=== PATIENT | male | born 1970 | race Caucasian/White ===

== ENCOUNTER 2021-01-19 05:54 | Inpatient (IN) | payer OTHER ==
[~2021-01-19] VITALS: Ht 177.8 cm; Wt 104.4 kg
[2021-01-19 06:23] LABS: BASOPHIL 0.3 % (0-2); EOSINOPHIL 0.4 % (0-5); HCT 47.9 % (42.0-52.0); HGB 16.1 g/dl (13.2-18.0); LYMPHOCYTE 18.3 % (15-48); MCH 28.4 pg (25.0-31.0); MCHC 33.6 g/dL (32.0-36.0); MCV 84.5 fL (78.0-100.0); MONOCYTE 9.1 % (0-12); MPV 10.4 fL (6.0-9.5); NEUTROPHIL 71.5 % (41-80); NRBC 0; PLT 273 K/uL (150-400); RBC 5.67 M/uL (4.70-6.00); RDW 13.2 % (11.5-14.0); WBC 12.5 K/uL (4.0-10.5)
[2021-01-19 08:01] LABS: ALBUMIN 4.1 g/dL (3.4-5.0); BILIRUBIN - TOTAL 1.6 mg/dL (0.2-1.0); BUN/CREAT RATIO (CALC) 11.4 RATIO; CREATININE 1.14 mg/dL (0.67-1.17); GLOBULIN (CALCULATION) 3.6 g/dL; POTASSIUM 4.3 mmol/L (3.5-5.1); TOTAL PROTEIN 7.7 g/dL (6.4-8.2)
[2021-01-19 08:29] LABS: BILIRUBIN NEGATIVE (NEGATIVE); BLOOD NEGATIVE Ery/uL (NEGATIVE); CLARITY CLEAR (CLEAR); COLOR YELLOW (YELLOW); GLUCOSE (U) NORMAL (NORMAL); LEUKOCYTES NEGATIVE Leu/uL (NEGATIVE); NITRITE NEGATIVE (NEGATIVE); PROTEIN NEGATIVE (NEGATIVE); SPECIFIC GRAVITY 1.025 (1.001-1.030); UROBILINOGEN 0.2 mg/dL (0.2-1.0)
[2021-01-19 14:26] LABS: LACTIC ACID 1.8 mmol/L (0.4-1.9)
[2021-01-20 10:59] LABS: HCT 40.5 % (42.0-52.0); HGB 13.4 g/dl (13.2-18.0); MCH 28.7 pg (25.0-31.0); MCHC 33.1 g/dL (32.0-36.0); MCV 86.7 fL (78.0-100.0); MPV 10.1 fL (6.0-9.5); RBC 4.67 M/uL (4.70-6.00); RDW 13.3 % (11.5-14.0); WBC 7.9 K/uL (4.0-10.5)
--- NOTE | 2021-01-20 16:12 | NUR ---
01/20 Mr. Luna lives at home with his spouse. He works and they are able to meet their financial obligations. No discharge planning needs are anticipated.
[2021-01-21 06:44] LABS: BASOPHIL 0.5 % (0-2); EOSINOPHIL 0.9 % (0-5); HCT 45.1 % (42.0-52.0); HGB 15.1 g/dl (13.2-18.0); LYMPHOCYTE 13.6 % (15-48); MCH 28.7 pg (25.0-31.0); MCHC 33.5 g/dL (32.0-36.0); MCV 85.7 fL (78.0-100.0); MONOCYTE 6.2 % (0-12); MPV 10.1 fL (6.0-9.5); NEUTROPHIL 78.5 % (41-80); NRBC 0; PLT 189 K/uL (150-400); RBC 5.26 M/uL (4.70-6.00); RDW 13.3 % (11.5-14.0); WBC 5.8 K/uL (4.0-10.5)
[2021-01-21 07:04] LABS: ALBUMIN 3.3 g/dL (3.4-5.0); BILIRUBIN - TOTAL 1.9 mg/dL (0.2-1.0); BUN/CREAT RATIO (CALC) 9.3 RATIO; CREATININE 1.08 mg/dL (0.67-1.17); GLOBULIN (CALCULATION) 4.3 g/dL; POTASSIUM 3.6 mmol/L (3.5-5.1); TOTAL PROTEIN 7.6 g/dL (6.4-8.2)
[2021-01-21] MEDS ORDERED: AUGMENTIN 875-1 EACH PO (15:12)
[2021-01-21] MEDS ORDERED: BIO-K PLUS DR1 EACH PO (15:12)
== END 2021-01-21 16:03 | disposition home or self-care (01) | DRG 871 ==
LOC: FER 05:54 → FMS 07:36
PROVIDERS: Emergency Medicine Emergency Medical Services; Student in an Organized Health Care Education/Training Program; ADMIT Family Medicine
PROC: 8E0ZXY6 Isolation (ICD-10-PCS; principal; 2021-01-19)
DX: A41.9 Sepsis, unspecified organism (principal); U07.1 COVID-19; K57.20 Diverticulitis of large intestine with perforation and abscess without bleeding; N17.9 Acute kidney failure, unspecified; R65.20 Severe sepsis without septic shock; Z20.822 Contact with and (suspected) exposure to COVID-19; R73.9 Hyperglycemia, unspecified; Z98.52 Vasectomy status; Z83.79 Family history of other diseases of the digestive system
CPT/HCPCS: 36415; 80053; 81003; 83036; 83605; 85025; 87040; J1170; J1650; J1885; J2405; J2543; J7030; U0002

== ENCOUNTER 2021-01-22 10:06 | Inpatient (IN) | payer OTHER ==
[~2021-01-22] VITALS: Ht 177.8 cm; Wt 60.4 kg
[~2021-01-22 10:06] MED LIST: AUGMENTIN 875-1 EACH PO; BIO-K PLUS DR1 EACH PO
[2021-01-23 05:58] LABS: BASOPHIL 0.2 % (0-2); EOSINOPHIL 0 % (0-5); HCT 46.4 % (42.0-52.0); HGB 15.5 g/dl (13.2-18.0); LYMPHOCYTE 7.1 % (15-48); MCH 28.1 pg (25.0-31.0); MCHC 33.4 g/dL (32.0-36.0); MCV 84.2 fL (78.0-100.0); MONOCYTE 8.6 % (0-12); MPV 10.1 fL (6.0-9.5); NEUTROPHIL 83.7 % (41-80); NRBC 0; PLT 280 K/uL (150-400); RBC 5.51 M/uL (4.70-6.00); RDW 13.3 % (11.5-14.0)
[2021-01-23 06:03] LABS: WBC 10.6 K/uL (4.0-10.5)
[2021-01-23 06:32] LABS: ALBUMIN 2.2 g/dL (3.4-5.0); BILIRUBIN - TOTAL 1.2 mg/dL (0.2-1.0); BUN/CREAT RATIO (CALC) 14.8 RATIO; CREATININE 1.55 mg/dL (0.67-1.17); GLOBULIN (CALCULATION) 3.8 g/dL; POTASSIUM 4.4 mmol/L (3.5-5.1)
[2021-01-23 11:41] LABS: LACTIC ACID 1.7 mmol/L (0.4-1.9)
[2021-01-24 06:10] LABS: BASOPHIL 0.2 % (0-2); EOSINOPHIL 0 % (0-5); HCT 37.9 % (42.0-52.0); HGB 12.6 g/dl (13.2-18.0); LYMPHOCYTE 10.1 % (15-48); MCH 27.9 pg (25.0-31.0); MCHC 33.2 g/dL (32.0-36.0); MONOCYTE 7.8 % (0-12); MPV 9.9 fL (6.0-9.5); NEUTROPHIL 81.1 % (41-80); NRBC 0; PLT 278 K/uL (150-400); RBC 4.51 M/uL (4.70-6.00); RDW 13.3 % (11.5-14.0); WBC 10.5 K/uL (4.0-10.5)
[2021-01-24 06:26] LABS: BILIRUBIN - TOTAL 0.6 mg/dL (0.2-1.0); BUN/CREAT RATIO (CALC) 19.8 RATIO; CREATININE 1.11 mg/dL (0.67-1.17); GLOBULIN (CALCULATION) 3.8 g/dL; MAGNESIUM 2.3 mg/dL (1.8-2.4); POTASSIUM 3.8 mmol/L (3.5-5.1); TOTAL PROTEIN 5.8 g/dL (6.4-8.2)
[2021-01-25 04:41] LABS: BASOPHIL 0.2 % (0-2); EOSINOPHIL 0.1 % (0-5); HCT 34.9 % (42.0-52.0); HGB 11.4 g/dl (13.2-18.0); LYMPHOCYTE 13.5 % (15-48); MCH 28.1 pg (25.0-31.0); MCHC 32.7 g/dL (32.0-36.0); MCV 86.2 fL (78.0-100.0); MONOCYTE 5.8 % (0-12); MPV 9.2 fL (6.0-9.5); NEUTROPHIL 79.1 % (41-80); NRBC 0; PLT 242 K/uL (150-400); RBC 4.05 M/uL (4.70-6.00); RDW 13.2 % (11.5-14.0); WBC 8.2 K/uL (4.0-10.5)
[2021-01-25 05:04] LABS: ALBUMIN 2.1 g/dL (3.4-5.0); BILIRUBIN - TOTAL 0.6 mg/dL (0.2-1.0); GLOBULIN (CALCULATION) 3.7 g/dL; POTASSIUM 3.4 mmol/L (3.5-5.1); TOTAL PROTEIN 5.8 g/dL (6.4-8.2)
--- NOTE | 2021-01-25 15:04 | NUR ---
01/25 Mr. Luna lives at home with his spouse. He was independent in the home and community. Referrals have been made to [facility] for a rw and [facility] for ostomy care per patient choice. - A report was given to MS Elizabeth RN, requesting for several flangs and ostomy bags to be provided to patient at discharge.
--- NOTE | 2021-01-26 17:10 | NUR ---
01/26 Lilly'humberto has delivered the RW to patient's room.
[2021-01-27 07:42] LABS: BASOPHIL 0.5 % (0-2); EOSINOPHIL 1.8 % (0-5); HCT 37.5 % (42.0-52.0); HGB 12.2 g/dl (13.2-18.0); MCH 28.1 pg (25.0-31.0); MCHC 32.5 g/dL (32.0-36.0); MCV 86.4 fL (78.0-100.0); MONOCYTE 6.4 % (0-12); MPV 9.2 fL (6.0-9.5); NEUTROPHIL 73.3 % (41-80); NRBC 0; PLT 329 K/uL (150-400); RBC 4.34 M/uL (4.70-6.00); RDW 13.2 % (11.5-14.0); WBC 9.4 K/uL (4.0-10.5)
[2021-01-27 07:59] LABS: BUN/CREAT RATIO (CALC) 17.1 RATIO; CREATININE 1.05 mg/dL (0.67-1.17); POTASSIUM 3.3 mmol/L (3.5-5.1)
[2021-01-28 07:55] LABS: HCT 41.7 % (42.0-52.0); HGB 13.4 g/dl (13.2-18.0); MCH 27.7 pg (25.0-31.0); MCHC 32.1 g/dL (32.0-36.0); MCV 86.2 fL (78.0-100.0); MPV 9.3 fL (6.0-9.5); RBC 4.84 M/uL (4.70-6.00); RDW 13.3 % (11.5-14.0); WBC 9.5 K/uL (4.0-10.5)
[2021-01-28 08:18] LABS: CREATININE 1.07 mg/dL (0.67-1.17); POTASSIUM 3.3 mmol/L (3.5-5.1)
--- NOTE | 2021-01-28 10:34 | NUR ---
01/28/2021 [facility] was informed of discharge.
[2021-01-28] MEDS ORDERED: NORCO 5-325 TA1 EACH PO (11:02)
[2021-01-28] MEDS ORDERED: ONDANSETRON ODT4 MG PO (11:02)
== END 2021-01-28 12:00 | disposition home health service (06) | DRG 853 ==
LOC: FOR 10:06 → FMS 18:53 → FTCU 18:53 → FMS 01-25 09:19
PROVIDERS: Nurse Practitioner; Nurse Practitioner Acute Care; Student in an Organized Health Care Education/Training Program; ADMIT Family Medicine
PROC: 0DJD8ZZ Inspection of Lower Intestinal Tract, Via Natural or Artificial Opening Endoscopic (ICD-10-PCS; 2021-01-22)
PROC: 8E0ZXY6 Isolation (ICD-10-PCS; principal; 2021-01-22 14:15)
PROC: 0DTN0ZZ Resection of Sigmoid Colon, Open Approach (ICD-10-PCS; 2021-01-22 14:15)
PROC: 0D1B0Z4 Bypass Ileum to Cutaneous, Open Approach (ICD-10-PCS; 2021-01-22 14:15)
DX: A41.9 Sepsis, unspecified organism (principal); K65.9 Peritonitis, unspecified; K57.20 Diverticulitis of large intestine with perforation and abscess without bleeding; K56.7 Ileus, unspecified; N17.9 Acute kidney failure, unspecified; D62 Acute posthemorrhagic anemia; E87.0 Hyperosmolality and hypernatremia; E44.0 Moderate protein-calorie malnutrition; N18.2 Chronic kidney disease, stage 2 (mild); Z20.822 Contact with and (suspected) exposure to COVID-19; R73.9 Hyperglycemia, unspecified; R65.20 Severe sepsis without septic shock; E87.6 Hypokalemia; Z86.16 Personal history of COVID-19; Z98.52 Vasectomy status
CPT/HCPCS: 36415; 71045; 80048; 80053; 82570; 82962; 83605; 83735; 85025; 87040; 87088; 93005; 94010; 94667; 94668; 97162; 97166; 97530-GP; 97535; J1100; J1170; J1644; J2250; J2270; J2405; J2543; J2704; J2800; J3010; J3480; J3490; J7030; J7050; J7120; Q9967; U0002

== ENCOUNTER 2021-01-31 13:19 | Inpatient (IN) | payer OTHER ==
[~2021-01-31] VITALS: Ht 177.8 cm; Wt 96.8 kg
[~2021-01-31 13:19] MED LIST changes: +NORCO 5-325 TA1 EACH PO; +ONDANSETRON ODT4 MG PO
[2021-01-31 14:14] LABS: BASOPHIL 0.2 % (0-2); EOSINOPHIL 0.4 % (0-5); HCT 39.6 % (42.0-52.0); HGB 13.4 g/dl (13.2-18.0); LYMPHOCYTE 8.4 % (15-48); MCH 27.6 pg (25.0-31.0); MCHC 33.8 g/dL (32.0-36.0); MONOCYTE 8.4 % (0-12); NRBC 0; PLT 415 K/uL (150-400); RBC 4.85 M/uL (4.70-6.00); RDW 13.4 % (11.5-14.0); WBC 17.4 K/uL (4.0-10.5)
[2021-01-31 14:17] LABS: MCV 81.6 fL (78.0-100.0)
[2021-01-31 14:26] LABS: ALKALINE PHOSHATASE 137 U/L (46-116); ALT 97 U/L (16-63); AST 23 U/L (15-37); BUN 15 mg/dL (7-18); BUN/CREAT RATIO (CALC) 14.7 RATIO; CHLORIDE 95 mmol/L (98-107); CO2 (BICARBONATE) 25 mmol/L (21-32); CREATININE 1.02 mg/dL (0.67-1.17); GLOBULIN (CALCULATION) 4.6 g/dL; GLUCOSE 137 mg/dL (74-106); LIPASE 212 U/L (73-393); POTASSIUM 4.5 mmol/L (3.5-5.1); TOTAL PROTEIN 7.6 g/dL (6.4-8.2)
[2021-01-31 15:54] LABS: CORONAVIRUS 2019 SARS-COV-2 NEGATIVE (NEGATIVE); INFLUENZA A NAA NEGATIVE (NEGATIVE)
[2021-02-01 06:58] LABS: BASOPHIL 0.3 % (0-2); EOSINOPHIL 0.3 % (0-5); HCT 36.6 % (42.0-52.0); HGB 12.1 g/dl (13.2-18.0); MCH 27.8 pg (25.0-31.0); MCHC 33.1 g/dL (32.0-36.0); MCV 84.1 fL (78.0-100.0); MONOCYTE 9.2 % (0-12); MPV 9.6 fL (6.0-9.5); NEUTROPHIL 78.9 % (41-80); NRBC 0; PLT 318 K/uL (150-400); RBC 4.35 M/uL (4.70-6.00); RDW 13.7 % (11.5-14.0)
[2021-02-01 07:34] LABS: ALBUMIN 2.5 g/dL (3.4-5.0); ALKALINE PHOSHATASE 109 U/L (46-116); ALT 71 U/L (16-63); AST 16 U/L (15-37); BILIRUBIN - TOTAL 0.9 mg/dL (0.2-1.0); BUN 14 mg/dL (7-18); BUN/CREAT RATIO (CALC) 16.9 RATIO; CHLORIDE 98 mmol/L (98-107); CO2 (BICARBONATE) 26 mmol/L (21-32); CREATININE 0.83 mg/dL (0.67-1.17); GLOBULIN (CALCULATION) 4.3 g/dL; GLUCOSE 125 mg/dL (74-106); POTASSIUM 4.9 mmol/L (3.5-5.1); TOTAL PROTEIN 6.8 g/dL (6.4-8.2)
[2021-02-03] MEDS ORDERED: ELIQUIS5 MG PO (10:47)
== END 2021-02-03 13:50 | disposition home or self-care (01) | DRG 175 ==
LOC: FER 13:19 → FTCU 02-01 01:28
PROVIDERS: Emergency Medicine; Internal Medicine; ADMIT Internal Medicine
DX: I26.09 Other pulmonary embolism with acute cor pulmonale (principal); K57.20 Diverticulitis of large intestine with perforation and abscess without bleeding; E87.1 Hypo-osmolality and hyponatremia; R65.10 Systemic inflammatory response syndrome (SIRS) of non-infectious origin without acute organ dysfunction; I36.1 Nonrheumatic tricuspid (valve) insufficiency; Z20.822 Contact with and (suspected) exposure to COVID-19; N18.2 Chronic kidney disease, stage 2 (mild); R73.9 Hyperglycemia, unspecified; Z90.49 Acquired absence of other specified parts of digestive tract; Z93.3 Colostomy status; Z98.52 Vasectomy status; Z79.899 Other long term (current) drug therapy
CPT/HCPCS: 36415; 71045; 71275; 80053; 83690; 83880; 84145; 84484; 85025; 85730; 93005; 93970; J1170; J1644; J2405; J7030; Q9967; U0002

== ENCOUNTER 2021-03-23 14:05 | Emergency (ER) | payer OTHER ==
[~2021-03-23 14:05] MED LIST changes: +ELIQUIS5 MG PO
[2021-03-23 16:05] LABS: BASOPHIL 0.6 % (0-2); EOSINOPHIL 1.6 % (0-5); HCT 46.8 % (42.0-52.0); HGB 15.4 g/dl (13.2-18.0); LYMPHOCYTE 20.3 % (15-48); MCH 26.6 pg (25.0-31.0); MCHC 32.9 g/dL (32.0-36.0); MCV 80.8 fL (78.0-100.0); MONOCYTE 8.7 % (0-12); MPV 9.5 fL (6.0-9.5); NRBC 0; PLT 272 K/uL (150-400); RBC 5.79 M/uL (4.70-6.00); RDW 15.5 % (11.5-14.0); WBC 9.3 K/uL (4.0-10.5)
[2021-03-23 16:07] LABS: BILIRUBIN NEGATIVE (NEGATIVE); BLOOD 3+ Ery/uL (NEGATIVE); CLARITY CLEAR (CLEAR); COLOR YELLOW (YELLOW); GLUCOSE (U) NORMAL (NORMAL); LEUKOCYTES NEGATIVE Leu/uL (NEGATIVE); NITRITE NEGATIVE (NEGATIVE); PROTEIN 1+ mg/dL (NEGATIVE); SPECIFIC GRAVITY >=1.030 (1.001-1.030); UROBILINOGEN 0.2 mg/dL (0.2-1.0); pH 5.5 (5.0-9.0)
[2021-03-23 16:10] LABS: INR 1.21 (0.9-1.2); PROTHROMBIN TIME 14.7 SECONDS (11.8-13.4); PTT 26.7 SECONDS (24.4-34.7)
[2021-03-23 16:12] LABS: ALBUMIN 4.5 g/dL (3.4-5.0); BUN/CREAT RATIO (CALC) 15.9 RATIO; CREATININE 1.32 mg/dL (0.67-1.17); GLOBULIN (CALCULATION) 3.7 g/dL; POTASSIUM 4.5 mmol/L (3.5-5.1); TOTAL PROTEIN 8.2 g/dL (6.4-8.2)
[2021-03-23 16:13] LABS: BACTERIA TRACE; CALCIUM OXALATE CRYSTALS MODERATE; SQUAMOUS EPITHELIAL CELLS RARE; URINARY RBC 20-50
== END 2021-03-23 18:46 | disposition home or self-care (01) ==
LOC: FER 14:05
PROVIDERS: Physician Assistant
DX: N21.0 Calculus in bladder (principal); N32.89 Other specified disorders of bladder; Z86.711 Personal history of pulmonary embolism; Z79.01 Long term (current) use of anticoagulants
CPT/HCPCS: 36415; 80053; 81001; 85025; 85610; 85730

== ENCOUNTER → 2021-05-14 | Day surgery (SDC) | payer OTHER ==
[~2021-05-14] VITALS: Ht 177.8 cm; Wt 88.6 kg
[~2021-05-14] MED LIST changes: +ATARAX25 MG PO; +DAILY VALUE1 EACH PO
== END | disposition home or self-care (01) ==
LOC: FAS 09:10
DX: K57.30 Diverticulosis of large intestine without perforation or abscess without bleeding (principal); K63.89 Other specified diseases of intestine; Z93.2 Ileostomy status; Z90.49 Acquired absence of other specified parts of digestive tract; Z79.01 Long term (current) use of anticoagulants; Z98.0 Intestinal bypass and anastomosis status
CPT/HCPCS: J2250; J2704; J7120

== ENCOUNTER 2021-06-02 08:45 | Inpatient (IN) | payer OTHER ==
[~2021-06-02] VITALS: Ht 178 cm; Wt 86.0 kg
[2021-07-21 07:01] LABS: HCT 46.2 % (42.0-52.0); HGB 15.4 g/dl (13.2-18.0); MCH 28.6 pg (25.0-31.0); MCHC 33.3 g/dL (32.0-36.0); MCV 85.9 fL (78.0-100.0); MPV 10.6 fL (6.0-9.5); RBC 5.38 M/uL (4.70-6.00); RDW 13.7 % (11.5-14.0); WBC 4.6 K/uL (4.0-10.5)
[2021-07-21 07:26] LABS: ALBUMIN 4.3 g/dL (3.4-5.0); BILIRUBIN - TOTAL 1.9 mg/dL (0.2-1.0); BUN/CREAT RATIO (CALC) 8.7 RATIO; CREATININE 1.04 mg/dL (0.67-1.17); GLOBULIN (CALCULATION) 3.3 g/dL; POTASSIUM 4.3 mmol/L (3.5-5.1); TOTAL PROTEIN 7.6 g/dL (6.4-8.2)
[2021-07-22 06:25] LABS: HCT 38.2 % (42.0-52.0); HGB 12.7 g/dl (13.2-18.0); MCH 28.6 pg (25.0-31.0); MCHC 33.2 g/dL (32.0-36.0); MPV 10.4 fL (6.0-9.5); RBC 4.44 M/uL (4.70-6.00); RDW 13.6 % (11.5-14.0)
[2021-07-22 06:46] LABS: WBC 8.4 K/uL (4.0-10.5)
[2021-07-22 07:00] LABS: ALBUMIN 3.1 g/dL (3.4-5.0); BILIRUBIN - TOTAL 1.2 mg/dL (0.2-1.0); BUN/CREAT RATIO (CALC) 10.5 RATIO; CREATININE 1.14 mg/dL (0.67-1.17); GLOBULIN (CALCULATION) 2.7 g/dL; POTASSIUM 3.7 mmol/L (3.5-5.1); TOTAL PROTEIN 5.8 g/dL (6.4-8.2)
[2021-07-23 05:47] LABS: BASOPHIL 0.3 % (0-2); EOSINOPHIL 0.3 % (0-5); HCT 38.1 % (42.0-52.0); HGB 12.6 g/dl (13.2-18.0); LYMPHOCYTE 16.6 % (15-48); MCH 28.6 pg (25.0-31.0); MCHC 33.1 g/dL (32.0-36.0); MCV 86.6 fL (78.0-100.0); MONOCYTE 10.2 % (0-12); MPV 10.3 fL (6.0-9.5); NEUTROPHIL 72.4 % (41-80); NRBC 0; PLT 167 K/uL (150-400); RDW 13.8 % (11.5-14.0); WBC 5.9 K/uL (4.0-10.5)
[2021-07-23 06:07] LABS: BUN/CREAT RATIO (CALC) 7.7 RATIO; CREATININE 0.91 mg/dL (0.67-1.17); POTASSIUM 3.6 mmol/L (3.5-5.1)
[2021-07-23 17:05] LABS: HCT 43.4 % (42.0-52.0); HGB 14.4 g/dl (13.2-18.0); MCH 28.5 pg (25.0-31.0); MCHC 33.2 g/dL (32.0-36.0); MCV 85.9 fL (78.0-100.0); MPV 10.1 fL (6.0-9.5); RBC 5.05 M/uL (4.70-6.00); RDW 13.6 % (11.5-14.0); WBC 5.9 K/uL (4.0-10.5)
--- NOTE | 2021-07-23 17:19 | NUR ---
1530 CALLED IN THE ROOM WANTED TEMP CHECKED FACE FLUSHED AND SKIN IS WARM AND TEMP WAS 99.8. INSTRUCTIONS GIVEN ON THE USE OF THE ISB PATIENT WAS ABLE TO GET IT UP TO 1999, WILL MONITOR FOR CHANGES. 1628 DR. OWENS WAS NOTIFED AND WILL COME TO CHECK ON THE PATIENT. 1633 COMPLIANTS OF INCREASED PAIN, OXY-IR 5MG AND TYLENOL 650MG PO. WILL MONITOR FOR CHANGES. 1700 DR. OWENS HERE FOR TO CHECK ON THE PATIENT.
[2021-07-23 17:30] LABS: ALBUMIN 3.4 g/dL (3.4-5.0); BILIRUBIN - TOTAL 1.6 mg/dL (0.2-1.0); BUN/CREAT RATIO (CALC) 7.4 RATIO; CREATININE 0.94 mg/dL (0.67-1.17); POTASSIUM 3.8 mmol/L (3.5-5.1); TOTAL PROTEIN 6.4 g/dL (6.4-8.2)
[2021-07-25 06:03] LABS: HCT 43.7 % (42.0-52.0); MCH 28.5 pg (25.0-31.0); MCV 88.8 fL (78.0-100.0); MPV 10.1 fL (6.0-9.5); RBC 4.92 M/uL (4.70-6.00); RDW 13.6 % (11.5-14.0); WBC 5.3 K/uL (4.0-10.5)
[2021-07-25 06:25] LABS: BUN/CREAT RATIO (CALC) 9.9 RATIO; CREATININE 1.01 mg/dL (0.67-1.17)
[2021-07-26] MEDS ORDERED: ACETAMINOPHEN500 M1 PO (09:09)
[2021-07-26] MEDS ORDERED: COLACE100 MG PO (09:09)
[2021-07-26] MEDS ORDERED: OXY-IR 5MG5 MG PO (09:09)
[2021-07-26] MEDS ORDERED: MOTRIN600 MG PO (09:09)
[2021-07-27] MEDS ORDERED: ACETAMINOPHEN500 M1 PO (21:38)
[2021-07-27] MEDS ORDERED: COLACE100 MG PO (21:38)
[2021-07-27] MEDS ORDERED: OXY-IR 5MG5 MG PO (21:39)
[2021-07-27] MEDS ORDERED: MOTRIN600 MG PO (21:39)
== END 2021-07-26 13:00 | disposition home or self-care (01) | DRG 330 ==
LOC: FMS 08:45 → FSDC 07-21 06:10 → FMS 07-21 08:45
PROVIDERS: Family Medicine; ADMIT Student in an Organized Health Care Education/Training Program
PROC: 0WQF0ZZ Repair Abdominal Wall, Open Approach (ICD-10-PCS; 2021-07-21)
PROC: 0DBB0ZZ Excision of Ileum, Open Approach (ICD-10-PCS; principal; 2021-07-21 07:30)
DX: Z43.2 Encounter for attention to ileostomy (principal); K91.89 Other postprocedural complications and disorders of digestive system; K56.7 Ileus, unspecified; D62 Acute posthemorrhagic anemia; K43.3 Parastomal hernia with obstruction, without gangrene; K66.0 Peritoneal adhesions (postprocedural) (postinfection); N18.2 Chronic kidney disease, stage 2 (mild); R74.01 Elevation of levels of liver transaminase levels; E80.7 Disorder of bilirubin metabolism, unspecified; G89.18 Other acute postprocedural pain; K21.9 Gastro-esophageal reflux disease without esophagitis; K66.8 Other specified disorders of peritoneum; Z90.49 Acquired absence of other specified parts of digestive tract; Z98.52 Vasectomy status; Z83.79 Family history of other diseases of the digestive system; Z79.899 Other long term (current) drug therapy
CPT/HCPCS: 36415; 74019; 80048; 80053; 83605; 85025; 86850; 86900; 86901; J0690; J1100; J1170; J1650; J1885; J2250; J2405; J2704; J2710; J3010; J3480; J7120

== ENCOUNTER 2021-07-27 13:17 | Inpatient (IN) | payer OTHER ==
[~2021-07-27] VITALS: Ht 177.8 cm; Wt 85.5 kg
[~2021-07-27 13:17] MED LIST changes: +ACETAMINOPHEN500 M1 PO; +COLACE100 MG PO; +MOTRIN600 MG PO; +OXY-IR 5MG5 MG PO
[2021-07-27 14:13] LABS: BASOPHIL 0.3 % (0-2); EOSINOPHIL 1.6 % (0-5); HCT 45.1 % (42.0-52.0); HGB 15.1 g/dl (13.2-18.0); LYMPHOCYTE 8.2 % (15-48); MCH 28.4 pg (25.0-31.0); MCHC 33.5 g/dL (32.0-36.0); MONOCYTE 8.8 % (0-12); MPV 10.4 fL (6.0-9.5); NEUTROPHIL 80.9 % (41-80); NRBC 0; PLT 244 K/uL (150-400); RBC 5.32 M/uL (4.70-6.00); RDW 13.2 % (11.5-14.0); WBC 6.2 K/uL (4.0-10.5)
[2021-07-27 14:18] LABS: MCV 84.8 fL (78.0-100.0)
[2021-07-27 14:24] LABS: ALBUMIN 3.3 g/dL (3.4-5.0); BILIRUBIN - TOTAL 1.7 mg/dL (0.2-1.0); BUN/CREAT RATIO (CALC) 12.1 RATIO; CREATININE 0.91 mg/dL (0.67-1.17); GLOBULIN (CALCULATION) 3.6 g/dL; TOTAL PROTEIN 6.9 g/dL (6.4-8.2)
[2021-07-27] MEDS ORDERED: ACETAMINOPHEN500 M1 PO (21:38)
[2021-07-27] MEDS ORDERED: COLACE100 MG PO (21:38)
[2021-07-27] MEDS ORDERED: MOTRIN600 MG PO (21:39)
[2021-07-27] MEDS ORDERED: OXY-IR 5MG5 MG PO (21:39)
[2021-07-28 06:49] LABS: BASOPHIL 0.4 % (0-2); EOSINOPHIL 4.5 % (0-5); HCT 39.2 % (42.0-52.0); LYMPHOCYTE 19.5 % (15-48); MCH 28.6 pg (25.0-31.0); MCHC 33.2 g/dL (32.0-36.0); MCV 86.2 fL (78.0-100.0); MONOCYTE 15.2 % (0-12); MPV 10.1 fL (6.0-9.5); NEUTROPHIL 60.2 % (41-80); NRBC 0; PLT 221 K/uL (150-400); RBC 4.55 M/uL (4.70-6.00); RDW 13.4 % (11.5-14.0); WBC 4.5 K/uL (4.0-10.5)
[2021-07-28 07:52] LABS: ALBUMIN 2.9 g/dL (3.4-5.0); BILIRUBIN - TOTAL 1.2 mg/dL (0.2-1.0); BUN/CREAT RATIO (CALC) 12.6 RATIO; C-REACTIVE PROTEIN 2.1 mg/dL (<=0.90); CREATININE 1.03 mg/dL (0.67-1.17); GLOBULIN (CALCULATION) 2.7 g/dL; PHOSPHORUS 4.2 mg/dL (2.6-4.7); POTASSIUM 3.6 mmol/L (3.5-5.1); TOTAL PROTEIN 5.6 g/dL (6.4-8.2)
[2021-07-29 06:55] LABS: BASOPHIL 0.3 % (0-2); EOSINOPHIL 3.6 % (0-5); HCT 40.3 % (42.0-52.0); HGB 13.1 g/dl (13.2-18.0); LYMPHOCYTE 28.3 % (15-48); MCH 28.4 pg (25.0-31.0); MCHC 32.5 g/dL (32.0-36.0); MCV 87.2 fL (78.0-100.0); MONOCYTE 15.8 % (0-12); MPV 10.2 fL (6.0-9.5); NRBC 0; PLT 223 K/uL (150-400); RBC 4.62 M/uL (4.70-6.00); RDW 13.5 % (11.5-14.0); WBC 3.6 K/uL (4.0-10.5)
[2021-07-29 07:15] LABS: BUN/CREAT RATIO (CALC) 9.7 RATIO; CREATININE 1.03 mg/dL (0.67-1.17); MAGNESIUM 1.7 mg/dL (1.8-2.4); POTASSIUM 3.6 mmol/L (3.5-5.1)
--- NOTE | 2021-07-29 09:16 | NUR ---
PATIENT IS DOING WELL, STATES HE FEELS A LOT BETTER. 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 INCISION IS OPEN TO AIR, HEALLING GOOD, NO DRAINAGE. PATIENT STATES THAT HE HAS HOW 2 BOWEL MOVERMENTS AND IS PASSING GAS. REALLY WANTS THE NG TUBE OUT.
[2021-07-30 07:00] LABS: BASOPHIL 0.5 % (0-2); HCT 37.8 % (42.0-52.0); HGB 12.6 g/dl (13.2-18.0); LYMPHOCYTE 24.1 % (15-48); MCH 28.4 pg (25.0-31.0); MCHC 33.3 g/dL (32.0-36.0); MCV 85.1 fL (78.0-100.0); MONOCYTE 15.5 % (0-12); MPV 9.9 fL (6.0-9.5); NEUTROPHIL 56.4 % (41-80); NRBC 0; PLT 206 K/uL (150-400); RBC 4.44 M/uL (4.70-6.00); RDW 13.1 % (11.5-14.0)
[2021-07-30 07:24] LABS: BUN/CREAT RATIO (CALC) 4.8 RATIO; CREATININE 1.05 mg/dL (0.67-1.17); MAGNESIUM 2.1 mg/dL (1.8-2.4); POTASSIUM 3.4 mmol/L (3.5-5.1)
[2021-07-31 07:02] LABS: BUN/CREAT RATIO (CALC) 6.1 RATIO; CREATININE 0.99 mg/dL (0.67-1.17); POTASSIUM 3.2 mmol/L (3.5-5.1)
== END 2021-07-31 11:42 | disposition home or self-care (01) | DRG 390 ==
LOC: FER 13:17 → FMS 18:07
PROVIDERS: Nurse Practitioner; Nurse Practitioner Family; ADMIT Internal Medicine
DX: K56.7 Ileus, unspecified (principal); F41.9 Anxiety disorder, unspecified; E87.6 Hypokalemia; N18.2 Chronic kidney disease, stage 2 (mild); Z90.49 Acquired absence of other specified parts of digestive tract; Z87.19 Personal history of other diseases of the digestive system; Z86.16 Personal history of COVID-19; Z86.711 Personal history of pulmonary embolism; Z79.01 Long term (current) use of anticoagulants; Z79.899 Other long term (current) drug therapy
CPT/HCPCS: 36415; 74018; 74019; 80048; 80053; 83605; 83735; 84100; 84145; 85025; 86140; 94010; 96372; J1170; J1650; J2405; J2765; J3475; J7030; Q9967

== ENCOUNTER → 2021-11-12 | Day surgery (SDC) | payer OTHER ==
[~2021-11-12] VITALS: Ht 177.8 cm; Wt 85.3 kg
== END | disposition home or self-care (01) ==
LOC: FAS 05:56
DX: Z12.11 Encounter for screening for malignant neoplasm of colon (principal); K57.30 Diverticulosis of large intestine without perforation or abscess without bleeding
CPT/HCPCS: J2250; J2704; J7120